=== PATIENT | female | born 1985 | race Caucasian/White ===

== ENCOUNTER 2019-08-18 17:22 | Emergency (ER) | payer OTHER ==
--- OUTSIDE RECORDS SUMMARY | 2019-08-18 17:24 | XMS REPORT ---
:1985 [facility] Address [address] [place] [address] Care Team Providers Name Role Phone Unavailable Unavailable Unavailable Problems This patient has no known problems. Allergies, Adverse Reactions, Alerts This patient has no known allergies or adverse reactions. Medications This patient has no known medications.
--- OUTSIDE RECORDS SUMMARY | 2019-08-18 17:24 | XMS REPORT | Summary of Care ---
:1985 Author Organization [facility] - Health Address [address] [place] [address] Care Team Providers Name Role Phone Syst, Referring/Pcp Prov Not In Insurance Hmo Unavailable Marian Castillo Primary Care Provider Encounter Details Date Type Department Care Team Description 05/29/2019 Orders Only [facility] Doctor Unassigned, [address] [facility] [place] [address] [address] [place] [address] Allergies No Known Allergiesdocumented as of this encounter (statuses as of 05/29/2019) Medications Medication Sig Dispensed Refills Start Date End Date Status norgestimate-ethinyl Take 1 tablet by 1 Package 3 09/11/2017 Active estradiol (ORTHO mouth daily. TRI-CYCLEN, 28,) 0.18/0.215/0.25 mg-35 mcg (28) tabletIndications: General counseling for prescription of oral contraceptives documented as of this encounter (statuses as of 05/29/2019) Active Problems Problem Noted Date History of abnormal cervical Pap smear 12/16/2018 Encounter for contraceptive management, unspecified type 09/12/2017 Cervical high risk human papillomavirus (HPV) DNA test positive 03/15/2017 Overview: HGSIL and HPV+ on 02/2017 Pap Smear Papanicolaou smear of cervix with high grade squamous intraepithelial 2016 lesion (HGSIL) Overview: HGSIL present on 03/11/2017 pap smear, patient needs LEEP Well woman exam with routine gynecological exam 03/11/2017 Screen for STD (sexually transmitted disease) 03/11/2017 Obesity, unspecified 03/11/2017 documented as of this encounter (statuses as of 05/29/2019) Resolved Problems Problem Noted Date Resolved Date General counseling for prescription of oral contraceptives 09/12/20172018 Pain pelvic 09/12/2017 12/16/2018 Encounter for other contraceptive management 03/11/2017 12/16/2018 Tubal ligation status 08/29/2016 03/11/2017 Low-lying placenta 06/15/2016 03/11/2017 Overview: FU was made for growth and placental location. 09/13/16 UTI in , antepartum 04/01/2016 03/11/2017 Supervision of high risk , antepartum 03/27/2016 03/11/2017 Multiparity 03/27/2016 03/11/2017 Obesity affecting 03/27/2016 03/11/2017 Tobacco smoking affecting 03/27/2016 03/11/2017 History of gestational hypertension 03/27/2016 03/11/2017 History of placenta abruption 03/27/2016 03/11/2017 Vaginal yeast infection 03/27/2016 03/11/2017 Encounter for routine gynecological examination 10/28/2014 03/27/2016 Overview: ICD10 Diagnosis Term [employer] Utility Surveillance of previously prescribed contraceptive method 10/28/20142015 Overview: ICD10 Diagnosis Term [employer] Utility Depo-Provera contraceptive status 10/28/2014 03/27/2016 Screen for STD (sexually transmitted disease) 10/28/2014 03/27/2016 High-risk 11/20/2013 10/28/2014 Overview: ICD10 Diagnosis Term [employer] Utility Generalized anxiety disorder 11/20/2013 03/27/2016 Tobacco use disorder 11/20/2013 03/27/2016 Prior complicated by PIH, antepartum 11/20/2013 10/28/2014 Overview: 1st Hx of one miscarriage 11/20/2013 10/28/2014 Overview: At 15wks in 2006. Followed by 3 successful deliveries Pediculus capitis (head louse) 05/09/2008 11/20/2013 Supervision of other normal 05/09/2008 11/20/2013 Urinary tract infection, site not specified 05/09/2008 11/20/2013 Cannabis dependence 05/09/2008 11/20/2013 Overview: ICD10 Diagnosis Term [employer] Nausea without vomiting 05/09/2008 11/20/2013 Overview: ICD10 Diagnosis Term [employer] Utility Other screening 05/09/2008 11/20/2013 Other specified drug dependence, unspecified 05/09/2008 11/20/2013 Less than 24 completed weeks of gestation 05/09/2008 11/20/2013 31-32 completed weeks of gestation(765.26) 05/09/2008 11/20/2013 Proteinuria 05/09/2008 11/20/2013 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 11/20/2013 Overview: ICD10 Diagnosis Term [employer] Utility Tobacco use disorder complicating , childbirth, or 04/30/20082013 puerperium, antepartum Overview: ICD10 Diagnosis Term [employer] Utility Other anxiety states 04/30/2008 11/20/2013 Carrier or suspected carrier of group B Streptococcus 04/30/2008 11/20/2013 Elevated blood pressure reading without diagnosis of 04/30/2008 11/20/2013 hypertension Overview: Labile blood pressure without s/s of PIH documented as of this encounter (statuses as of 05/29/2019) Immunizations Name Administration Dates Next Due Rubella 05/26/2010 Td 11/20/2000 Tdap 08/15/2016, 04/13/2014 documented as of this encounter Social History Tobacco Use Types Packs/Day Years Used Date Current Every Day Smoker Cigarettes 0.25 4 Started: 12/16/2008 Smokeless Tobacco: Never Used Alcohol Use Drinks/Week oz/Week Comments No 0 Standard drinks or equivalent 0.0 Sex Assigned at Date Recorded Not on file Job Start Date Occupation Industry Not on file Not on file Not on file Travel History Travel Start Travel End No recent travel history available. documented as of this encounter Last Filed Vital Signs Not on filedocumented in this encounter Plan of Treatment Health Maintenance Due Date Last Done Comments PNEUMOCOCCAL 0-64 YEARS COMBINED 1992 SERIES (1 of 1 - PPSV23) INFLUENZA VACCINE (#1) 2019 PAP SMEAR 12/16/2021 12/16/2018, 11/19/2017, 03/11/2017, Additional history exists DTaP,Tdap,and Td Vaccines (4 - Td) 08/15/2026 08/15/2016, 04/13/2014, 11/20/2000 documented as of this encounter Goals Goal Patient Goal Associated Recent Patient-Stated? Author Type Problems Progress Quit using Tobacco Use No jesse Dent RN (cigarettes, smokeless, etc) documented as of this encounter Procedures Procedure Name Priority Date/Time Associated Diagnosis Comments NO SHOW OR MISSED Routine 05/29/2019 9:38 AM APPOINTMENT POLICY CDT ACKNOWLEDGEMENT documented in this encounter Results Not on filedocumented in this encounter Insurance Payer Benefit Plan Subscriber ID Effective Phone Address Type / Group Dates [facility] xxxxxxxxx 2016-Prese [phone] Medicaid WOMEN nt [address] [place] [address] documented as of this encounter Advance Directives Name Relationship Healthcare Agent Communication Relationship Kannan Seals Father Primary healthcare agent
--- OUTSIDE RECORDS SUMMARY | 2019-08-18 17:24 | XMS REPORT | Summary of Care ---
:1985 Author Organization [facility] Address [address] [place] [address] Care Team Providers Name Role Phone Syst, Referring/Pcp Prov Not In Insurance Hmo Unavailable Jacquelyn Saunders [facility] Primary Care Provider Reason for Visit Reason Comments Initial Visit Encounter Details Date Type Department Care Team Description 05/29/2019 [facility], Supervision of high risk , antepartum (Primary Dx); Visit Gilberto Kincaid [facility] Multiparity; [address] History of placenta abruption; [facility] History of induced hypertension; [id number] JEFFREY A Obesity in ; [phone] [place], [place] Maternal tobacco use in first trimester [address] Allergies No Known Allergiesdocumented as of this [...] of 05/29/2019) Active Problems Problem Noted Date Supervision of high-risk 05/29/2019 Tobacco use in 05/29/2019 History of induced hypertension 05/29/2019 Overview: In 2007 History of placenta abruption 05/29/2019 Overview: In 2009 per patient Multiparity 05/29/2019 History of abnormal cervical Pap smear 12/16/2018 Cervical high risk human papillomavirus (HPV) DNA test positive 03/15/2017 Overview: HGSIL and HPV+ on 02/2017 Pap Smear Papanicolaou smear of cervix with high grade squamous intraepithelial 2016 lesion (HGSIL) Overview: HGSIL present on 03/11/2017 pap smear, patient needs LEEP Obesity in 03/11/2017 Estimated Date of Delivery Comments Yes 01/16/2020 Based on last menstrual period of 04/11/2019 (Exact Date) documented as of this encounter (statuses as of 05/29/2019) Resolved Problems Problem Noted Date Resolved Date Encounter for contraceptive management, unspecified type 09/12/20172018 General counseling for prescription of oral contraceptives 09/12/20172018 Pain pelvic 09/12/2017 12/16/2018 Well woman exam with routine gynecological exam 03/11/2017 05/29/2019 Screen for STD (sexually transmitted disease) 03/11/2017 05/29/2019 Encounter for other contraceptive management 03/11/2017 12/16/2018 [...] examination 10/28/2014 03/27/2016 Overview: ICD10 Diagnosis 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 Other screening 05/09/2008 11/20/2013 Other specified drug dependence, unspecified 05/09/2008 11/20/2013 Less than 24 completed weeks of gestation 05/09/2008 11/20/2013 31-32 completed weeks of gestation(765.26) 05/09/2008 11/20/2013 Proteinuria 05/09/2008 11/20/2013 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 11/20/2013 Overview: ICD10 Diagnosis Term 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 Utility Tobacco use disorder complicating , childbirth, or 04/30/20082013 puerperium, antepartum Overview: ICD10 Diagnosis Term 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 documented as of this encounter Last Filed Vital Signs Vital Sign Reading Time Taken Comments Blood Pressure 103/72 05/29/2019 10:39 AM CDT Pulse 71 05/29/2019 10:39 AM CDT Temperature 36.7 C (98 F) 05/29/2019 10:39 AM CDT Respiratory Rate 16 05/29/2019 10:39 AM CDT Oxygen Saturation - - Inhaled Oxygen Concentration - - Weight 82.3 kg (181 lb 7 oz) 05/29/2019 10:39 AM CDT Height 165.1 cm (5' 5") 05/29/2019 10:39 AM CDT Body Mass Index 30.19 05/29/2019 10:39 AM CDT documented in this encounter Progress Notes Jacquelyn Saunders, WHCNP - 05/29/2019 9:30 AM CDT Chief complaint: Chief Complaint Patient presents with Initial Visit HPI CC: Initial Visit December Arnel is a 34 year old, , /White female. Patient's last menstrual period was04/11/2019 (exact date). She is 6w6d with an suspected iup. Her Estimated Date of Delivery: 01/16/20. She is being seen today for her first obstetrical visit. She has no complaints today. OB History Para Term AB Living 7 5 5 1 5 SAB TAB Ectopic Multiple Live Births 1 5 # Outcome Date GA Lbr Gilberto/2nd Weight Sex Delivery Anes PTL Lv 7 Current 6 Term 11/08/16 40w4d 7 lb (3.175 kg) F VAGINAL SHAGGY 5 Term 06/26/14 40w0d 6 lb 6 oz (2.892 kg) M NORMAL SPONT None SHAGGY 4 Term 01/09/11 39w0d F Vag-Spont EPIDURAL SHAGGY Comments: induction 3 Term 02/16/10 39w0d F Vag-Spont EPIDURAL SHAGGY Comments: Possible placenta abruption 2 Term 05/01/08 37w0d M Vag-Spont EPIDURAL SHAGGY Comments: PIH 1 2006 15w0d Histories OB History Para Term AB Living 7 5 5 1 5 SAB TAB Ectopic Multiple Live Births 1 5 # Outcome Date GA Lbr Gilberto/2nd Weight Sex Delivery Anes PTL Lv 7 Current 6 Term 11/08/16 40w4d 7 lb (3.175 kg) F VAGINAL SHAGGY 5 Term 06/26/14 40w0d 6 lb 6 oz (2.892 kg) M NORMAL SPONT None SHAGGY 4 Term 01/09/11 39w0d F Vag-Spont EPIDURAL SHAGGY Comments: induction 3 Term 02/16/10 39w0d F Vag-Spont EPIDURAL SHAGGY Comments: Possible placenta abruption 2 Term 05/01/08 37w0d M Vag-Spont EPIDURAL SHAGGY Comments: PIH 1 2006 15w0d Past Medical History: Diagnosis Date Anxiety Resolved per pt Cannabis dependence, unspecified 05/09/2008 Resolved per pt report Generalized anxiety disorder 11/20/2013 Resolved HGSIL (high grade squamous intraepithelial lesion) on Pap smear of cervix +hpv Hypertension 2007 with first Nausea alone 05/09/2008 Other screening 05/09/2008 Other specified drug dependence, unspecified 05/09/2008 Resolved per pt report Pediculus capitis (head louse) 05/09/2008 STD (sexually transmitted disease) 2007 +chlamydia Supervision of other normal 05/09/2008 Tobacco use disorder 11/20/2013 Urinary tract infection, site not specified 05/09/2008 Vaginal yeast infection 03/27/2016 Family History Problem Relation Age of Onset Cancer Paternal Aunt and consuelo's son with cancer Cancer Father leukemia Heart Father Hypertension Father Hypertension Sister No Significant Medical Problems Maternal Grandmother No Significant Medical Problems Maternal Grandfather No Significant Medical Problems Paternal Grandmother No Significant Medical Problems Paternal Grandfather Family Status Relation Name Status PAunt Fa Alive Fa (Not Specified) Sis (Not Specified) Mo Alive MGMo MGFa PGMo PGFa History reviewed. No pertinent surgical history. Social History Socioeconomic History Marital status: Single Spouse name: Not on file Number of children: 3 Years of education: 10 Highest education level: Not on file Occupational History Not on file Social Needs Financial resource strain: Not on file Food insecurity: Worry: Not on file Inability: Not on file Transportation needs: Medical: Not on file Non-medical: Not on file Tobacco Use Smoking status: Current Every Day Smoker Packs/day: 0.25 Years: 4.00 Pack years: 1.00 Types: Cigarettes Start date: 12/16/2008 Smokeless tobacco: Never Used Substance and Sexual Activity Alcohol use: No Alcohol/week: 0.0 oz Drug use: No Sexual activity: Yes Partners: Male control/protection: None Comment: Last intercourse 05/28/2019 Lifestyle Physical activity: Days per week: Not on file Minutes per session: Not on file Stress: Not on file Relationships Social connections: Talks on phone: Not on file Gets together: Not on file Attends taoist service: Not on file Active member of club or organization: Not on file Attends meetings of clubs or organizations: Not on file Relationship status: Not on file Intimate partner violence: Fear of current or ex partner: Not on file Emotionally abused: Not on file Physically abused: Not on file Forced sexual activity: Not on file Other Topics Concern Service Not Asked Blood Transfusions No Caffeine Concern Not Asked Occupational Exposure Not Asked Hobby Hazards Not Asked Sleep Concern Not Asked Stress Concern Not Asked Weight Concern Not Asked Special Diet Not Asked Back Care Not Asked Exercise Not Asked Bike Helmet Not Asked Seat Belt Not Asked Self-Exams Not Asked Social History Narrative No domestic violence or abuse. Pt states she has no taoist preference Pt has no cats. Patient lives alone with kids, patient feels safe at home. Social History Substance and Sexual Activity Sexual Activity Yes Partners: Male control/protection: None Comment: Last intercourse 05/28/2019 Genetic Screen Autism / Mental Retardation: No Sukumar Disease: No Congenital Heart Defect: No Cystic Fibrosis: No Down Syndrome: No Familial Dysautonomia: No Hemophilia or other Blood Disorders: No Loíza Chorea: No Maternal Metabolic Disorder--specify (eg. Type 1 Diabetes, PKU): No Muscular Dystrophy: No Neural Tube Defect: No Recurrent Loss or a Stillbirth: No Sickle Cell Disease or Trait: No Manoj Sachs: No Teratological Substances (specify type & strength/dose) since LMP: No Thalassemia: No Other Inherited Genetic or Chromosomal Disorder (specify): No No Significant History of Genetic Disorders: No Significant History of Genetic Disorders Labs Labs are pending. Radiology No new radiology. Allergies Naat has No Known Allergies. Medications Nata has a current medication list which includes the following prescription(s) : norgestimate-ethinyl estradiol. Review of Systems Constitutional: Negative. HENT: Negative. Eyes: Negative. Respiratory: Negative. Breasts: Negative. Cardiovascular: Negative. Gastrointestinal: Negative. Genitourinary: Negative. Musculoskeletal: Negative. Skin: Negative. Neurological: Negative. Psychiatric/Behavioral: Negative. Endocrine: Endocrine negative BP 103/72 (BP Location: Right arm, Patient Position: Sitting, BP CUFF SIZE: Adult Medium) | Pulse 71 | Temp 36.7 C (98 F) (Oral) | Resp 16 | Ht 5' 5 " (1.651 m) | Wt 181 lb 7 oz (82.3 kg) | LMP 04/11/2019 (Exact Date) | BMI 30.19 kg/m Pregravid BMI: Could not be calculated Physical Exam Vitals reviewed. Constitutional: She is oriented to person, place, and time. She appears well- developed. Her body habitus is normal. Neck: No tenderness and no mass. No thyroid nodules and no thyromegaly palpated. No neck adenopathy. Cardiovascular: Regular rate and rhythm. No gallop, no friction rub and no murmur auscultated. No peripheral edema present. Pulmonary/Chest: Breath sounds clear to auscultation. Normal inspiratory effort. Abdominal: Abdomen is soft. No mass palpated. No tenderness present. There is no hepatosplenomegaly,splenomegaly or hepatomegaly. There is no rigidity. No hernia palpated or inspected. Neuro/Psychiatric: She has a normal mood and affect. She is oriented to person, place, and time. Skin: No lesion, no rash and no ulceration present. Lymphadenopathy: No neck adenopathy present. No axillary adenopathy present. No inguinal adenopathy present. Breast: Right breast exhibits no mass, no nipple discharge and no tenderness. Left breast exhibits no mass, no nipple discharge and no tenderness. Breasts are symmetrical. Normal left breast and normalright breast Rectal: Rectal exam with normal anal tone. No mass, no external hemorrhoid and no internal hemorrhoid palpated or inspected. External genitalia: Normal external genitalia appropriate for age. Normal hair distribution. No labial lesion. Urethral meatus: Normal urethral meatus size, location and no lesion. No prolapse present. Normal urethral meatus Urethra: Normal urethra. No urethral tenderness, no mass and no urethral scarring palpated. Bladder: Bladder has no fullness, no mass palpated and no tenderness. Normal bladder Vagina:Normal vagina. No lesion inspected. Normal estrogen effect. Normal support. No abnormal vaginal discharge found. Cervix: Normal cervix. No lesion. No tenderness and no discharge present. Closed thick Uterus: Uterus is normal size, normal contour, normal position and non-tender. Normal uterus Adnexa: Right adnexa without tenderness, ovary enlargement or mass. Left adnexa without tenderness, ovary enlargement or mass. Normal left adnexa and normal right adnexa Anus/perineum: Normal perineum and normal anus. PHYSICAL: General Exam: HEENT: Normal Neurological: Normal Abdomen: Normal gravid Extremities: Normal Pelvic Exam: Vulva: Normal Vagina: Normal Cervix: Normal Membrane status: Intact Uterus: 6 Weeks Adnexa: Normal Rectum: Normal Assessment/Plan Return to clinic in 4 weeks. Denies zika virus risk, signs and symptoms such as fever,rash,joint pain, conjunctivitis (red eyes),muscle pain, headaches; outside [place] travel to areas affected by zika, and FOB exposure to zika. Educated on use of mosquito repellent. Supervision of high risk , antepartum (primary encounter diagnosis) Multiparity History of placenta abruption History of induced hypertension Comment: initial visit with labs and physical exam Plan: POCT TEST, POCT URINALYSIS W/O SPECIFIC GRAVITY, GLUCOSE 1 HOUR POST PRANDIAL, CBC WITH DIFF, GC & CHLAMYDIA AMPLIFIED ASSAY, HEPATITIS B SURFACE ANTIGEN, HIV 1/2 AG-AB WITH REFLEX, POCT URINALYSIS W SPECIFIC GRAVITY, WORKUP, BLOOD BANK, RUBELLA SCREEN (NONI) IGG, GALV ONLY - SYPHILIS IGG/IGM, URINE CULTURE, VZV ANTIBODY SCREEN, CBC WITH DIFFERENTIAL Obesity in Comment: see bmi Plan: limit weight gain and sensible diet. Maternal tobacco use in first trimester Comment: reports Plan: smoking cessation encouraged This visit did not involve counseling and coordination that comprised more than 50% of the visit time. PADMINI Angeles 05/29/2019 4:00 PM Lj Cohen RN - 05/29/2019 9:30 AM CDTPatient is 34 year old female here for current . Patient is . 1) Previous delivery methods Vaginal 2) Patient is not experiencing cramping 3) Patient is not experiencing bleeding. 4) LMP 04/11/2019 5) Last Pap was:12/16/2018 Results: Negative HPV: Negative 6) Have you had a flu vaccine this season? No, 7) PPD candidate? No 8) Patient complains uti symptoms and yeast infections symptoms. 9) Patient denies history of physical, emotional, or sexual abuse. Patient states she currently feels safe at home. New ob packet given and discussed with patient. LJ ODOM RN 05/29/2019 10:58 AM documented in this encounter Plan of Treatment Date Type Specialty Care Team Description 06/26/2019 Routine Visit OB Satellites Jacquelyn Saunders, [facility] [address] [place] [address] [phone] Name Type Priority Associated Diagnoses Date/Time GLUCOSE 1 HOUR POST LAB Routine Supervision of high risk 05/29/2019 11:47 AM PRANDIAL , antepartum CDT CBC WITH DIFF LAB Routine Supervision of high risk 05/29/2019 11:47 AM , antepartum CDT GC & CHLAMYDIA AMPLIFIED LAB Routine Supervision of high risk 05/29/2019 11 :59 AM ASSAY , antepartum CDT HEPATITIS B SURFACE LAB Routine Supervision of high risk 05/29/2019 11:47 AM ANTIGEN , antepartum CDT HIV 1/2 AG-AB WITH REFLEX LAB Routine Supervision of high risk 05/29/2019 11:47 AM , antepartum CDT RUBELLA SCREEN (NONI) LAB Routine Supervision of high risk 05/29/2019 11: 47 AM IGG , antepartum CDT GALV ONLY - SYPHILIS LAB Routine Supervision of high risk 05/29/2019 11:47 AM IGG/IGM , antepartum CDT URINE CULTURE LAB Routine Supervision of high risk 05/29/2019 11:59 AM , antepartum CDT VZV ANTIBODY SCREEN LAB Routine Supervision of high risk 05/29/2019 11:47 AM , antepartum CDT CBC WITH DIFFERENTIAL LAB Routine Supervision of high risk 05/29/2019 11: 47 AM , antepartum CDT Name Type Priority Associated Diagnoses Order Schedule POCT URINALYSIS W LAB Routine Supervision of high risk 20 Occurrences starting SPECIFIC GRAVITY , antepartum 05/29/2019 until 03/24/2020 WORKUP, BLOOD LAB Routine Supervision of high risk Ordered: 2018 BANK , antepartum Health Maintenance Due Date Last Done Comments PNEUMOCOCCAL 0-64 YEARS COMBINED 1992 SERIES (1 of 1 - PPSV23) INFLUENZA VACCINE (#1) 2019 PAP SMEAR 12/16/2021 12/16/2018, 11/19/2017, 03/11/2017, Additional history exists DTaP,Tdap,and Td Vaccines (4 - Td) 08/15/2026 08/15/2016, 04/13/2014, 11/20/2000 documented as of this encounter Goals Goal Patient Goal Associated Recent Patient-Stated? Author Type Problems Progress Quit using Tobacco Use jesse Brower RN (cigarettes, smokeless, etc) documented as of this encounter Procedures Procedure Name Priority Date/Time Associated Diagnosis Comments POCT URINALYSIS W/O Routine 05/29/2019 10:42 Supervision of high Results for this SPECIFIC GRAVITY AM CDT risk , procedure are in antepartum the results section. POCT TEST Routine 05/29/2019 10:40 Supervision of high Results for this AM CDT risk , procedure are in antepartum the results section. documented in this encounter Results POCT URINALYSIS W/O SPECIFIC GRAVITY (05/29/2019 10:42 AM CDT) POCT PH U 6 5 - 8 mg/dl POCT U LEUK EST Neg Negative - Negative POCT U NIT Neg Negative - Negative POCT U PROT Trace Negative - Negative POCT U GLU Neg Negative - Negative POCT U KETONE None Negative - Negative POCT U BLD Trace Negative - Negative Specimen Urine - URINE, CLEAN CATCH POCT TEST (05/29/2019 10:40 AM CDT) POCT PREG Positive On board controls acceptable Yes with C Line POCT PREG LOT # POCT PREG TEST DATE Specimen Urine - URINE, CLEAN CATCH documented in this encounter Visit Diagnoses Diagnosis Supervision of high risk , antepartum - Primary Multiparity History of placenta abruption History of induced hypertension Obesity in Obesity complicating , childbirth, or the puerperium, unspecified as to episode of care or not applicable Maternal tobacco use in first trimester documented in this encounter Insurance Payer Benefit Plan / Subscriber ID Effective Phone Address Type Group Dates MEDICAID MEDICAID PENDING 2019-[address] [place] [address] documented as of this encounter Advance Directives Name Relationship Healthcare Agent Communication Relationship Kannan Seals Father Primary healthcare agent
--- OUTSIDE RECORDS SUMMARY | 2019-08-18 17:25 | XMS REPORT | Summary of Care ---
:1985 Author Organization [facility] Address [address] [place] [address] Care Team Providers Name Role Phone Syst, Referring/Pcp Prov Not In Insurance Hmo Unavailable Jacquelyn Saunders [facility] Primary Care Provider Reason for Visit Reason Comments Orders US Encounter Details Date Type Department Care Team Description 06/01/[address] [facility] Jacquelyn Saunders, Orders ([place]) [address] [place] [address] [address] [facility] [phone] [place] [address] Allergies No Known Allergiesdocumented as of this encounter (statuses as of 06/01/2019) Medications Medication Sig Dispensed Refills Start Date End Date Status norgestimate-ethinyl Take 1 tablet by 1 Package 3 09/11/2017 Active estradiol (ORTHO mouth daily. 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 Depo-Provera contraceptive status 10/28/2014 03/27/2016 Screen for STD (sexually transmitted disease) 10/28/2014 03/27/2016 High-risk 11/20/2013 10/28/2014 Overview: ICD10 Diagnosis 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 Utility Generalized anxiety disorder 11/20/2013 03/27/2016 Tobacco [...] dependence 05/09/2008 11/20/2013 Overview: ICD10 Diagnosis 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 Nausea without vomiting 05/09/2008 11/20/2013 Overview: ICD10 Diagnosis 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 Utility Other screening 05/09/2008 11/20/2013 Other specified drug dependence, unspecified 05/09/2008 11/20/2013 Less than 24 completed weeks of gestation 05/09/2008 11/20/2013 31-32 completed weeks of gestation(765.26) 05/09/2008 11/20/2013 Proteinuria 05/09/2008 11/20/2013 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 11/20/2013 Overview: ICD10 Diagnosis 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 Utility Tobacco use disorder complicating , childbirth, or 04/30/20082013 puerperium, antepartum Overview: ICD10 Diagnosis 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 Utility Other anxiety states 04/30/2008 11/20/2013 Carrier or suspected carrier of group B Streptococcus 04/30/2008 11/20/2013 Elevated blood pressure reading without diagnosis of 04/30/2008 11/20/2013 hypertension Overview: Labile blood pressure without s/s of PIH documented as of this encounter (statuses as of 06/01/2019) Immunizations Name Administration Dates Next Due Rubella [...] filedocumented in this encounter Plan of Treatment Date Type Specialty Care Team Description 06/26/2019 Routine Visit OB Satellites Jacquelyn Saunders, WHCNP [address] [place] [address] [phone] Health Maintenance Due Date Last Done Comments PNEUMOCOCCAL 0-64 YEARS COMBINED 1992 SERIES (1 of 1 - PPSV23) INFLUENZA VACCINE (#1) 2019 PAP SMEAR 12/16/2021 12/16/2018, 11/19/2017, 03/11/2017, Additional history exists DTaP,Tdap,and Td Vaccines (4 - Td) 08/15/2026 08/15/2016, 04/13/2014, 11/20/2000 documented as of this encounter Goals Goal Patient Goal Associated Recent Patient-Stated? Author Type Problems Progress Quit using Tobacco Use No jesse Dent, RN (cigarettes, smokeless, etc) documented as of this encounter Results Not on filedocumented in this encounter Insurance Payer Benefit Plan Subscriber ID Effective Phone Address Type / Group Dates MEDICAID MEDICAID PENDING 2019-Pres [address] [place] [address] [facility] xxxxxxxxx 2016-Pres [phone] [address] Medicaid WOMEN ent [address] [place] [address] documented as of this encounter Advance Directives Name Relationship Healthcare Agent Communication Relationship Kannan Seals Father Primary healthcare agent
--- OUTSIDE RECORDS SUMMARY | 2019-08-18 17:25 | XMS REPORT | Summary of Care ---
:[address] 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 Tender Utility Surveillance of previously prescribed contraceptive method 10/28/20142015 Overview: ICD10 Diagnosis Term Boom Tender Utility Depo-Provera contraceptive status 10/28/2014 03/27/2016 Screen for STD (sexually transmitted disease) 10/28/2014 03/27/2016 High-risk 11/20/2013 10/28/2014 Overview: ICD10 Diagnosis Term Boom Tender Utility Generalized anxiety disorder 11/20/2013 03/27/2016 Tobacco [...] dependence 05/09/2008 11/20/2013 Overview: ICD10 Diagnosis Term Boom Tender Utility Nausea without vomiting 05/09/2008 11/20/2013 Overview: ICD10 Diagnosis Term Boom Tender Utility Other screening 05/09/2008 11/20/2013 Other specified drug dependence, unspecified 05/09/2008 11/20/2013 Less than 24 completed weeks of gestation 05/09/2008 11/20/2013 31-32 completed weeks of gestation(765.26) 05/09/2008 11/20/2013 Proteinuria 05/09/2008 11/20/2013 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 11/20/2013 Overview: ICD10 Diagnosis Term Boom Tender Utility Tobacco use disorder complicating , childbirth, or 04/30/20082013 puerperium, antepartum Overview: ICD10 Diagnosis Term Boom Tender Utility Other anxiety states 04/30/2008 11/20/2013 Carrier [...] 06/26/2019 Routine Visit OB Satellites Jacquelyn Saunders, CNP [address] [place] [address] [phone] Health Maintenance Due Date Last Done Comments [...] Group Dates MEDICAID MEDICAID PENDING 2019-Pres [address] Pending [place] [address] [facility] xxxxxxxxx 2016-Pres [phone] [id number] Medicaid WOMEN ent [address] [place] [address] documented as of this encounter Advance Directives Name Relationship Healthcare Agent Communication Relationship Kannan Seals Father Primary healthcare agent
--- OUTSIDE RECORDS SUMMARY | 2019-08-18 17:25 | XMS REPORT | Summary of Care ---
:1985 Author Organization [facility] Address [address] [place] [address] Care Team Providers Name Role Phone Syst, Referring/Pcp Prov Not In Insurance Hmo Unavailable Jacquelyn Saunders [facility] Primary Care Provider Reason for Visit Reason Comments Orders US Encounter Details Date Type Department Care Team Description 06/01/2019 Telephone [facility] [place] Jacquelyn Saunders, Orders ([place]) [address] [place] [address] 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 Utility Surveillance of previously prescribed contraceptive method 10/28/20142015 Overview: ICD10 Diagnosis Term Enologist Utility Depo-Provera contraceptive status 10/28/2014 03/27/2016 Screen for STD (sexually transmitted disease) 10/28/2014 03/27/2016 High-risk 11/20/2013 10/28/2014 Overview: ICD10 Diagnosis Term Enologist Utility Generalized anxiety disorder 11/20/2013 03/27/2016 Tobacco [...] dependence 05/09/2008 11/20/2013 Overview: ICD10 Diagnosis Term Enologist Utility Nausea without vomiting 05/09/2008 11/20/2013 Overview: ICD10 Diagnosis Term Enologist Utility Other screening 05/09/2008 11/20/2013 Other specified drug dependence, unspecified 05/09/2008 11/20/2013 Less than 24 completed weeks of gestation 05/09/2008 11/20/2013 31-32 completed weeks of gestation(765.26) 05/09/2008 11/20/2013 Proteinuria 05/09/2008 11/20/2013 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 11/20/2013 Overview: ICD10 Diagnosis Term Enologist Utility Tobacco use disorder complicating , childbirth, or 04/30/20082013 puerperium, antepartum Overview: ICD10 Diagnosis Term Enologist Utility Other anxiety states 04/30/2008 11/20/2013 Carrier [...] OB Satellites Jacquelyn Saunders, WHCNP [address] [place] [address] [phone] Health Maintenance Due Date Last Done Comments [...] Group Dates MEDICAID MEDICAID PENDING 2019-Pres [address] Pending [place] [address] [facility] xxxxxxxxx 2016-Pres [phone] [id number] Medicaid WOMEN ent [address] [place] [address] documented as of this encounter Advance Directives Name Relationship Healthcare Agent Communication Relationship Kannan Seals Father Primary healthcare agent
--- OUTSIDE RECORDS SUMMARY | 2019-08-18 17:26 | XMS REPORT | Summary of Care ---
:1985 Author Organization [facility] Address [address] [place] [address] Care Team Providers Name Role Phone Syst, Referring/Pcp Prov Not In Insurance Hmo Unavailable Jacquelyn Saunders [facility] Primary Care Provider Reason for Referral (Routine) Status Reason Specialty Diagnoses / Referred By Referred To Procedures Contact Contact New Request Maternal Diagnoses Supervision of high risk , antepartum Nicky, Medicine Procedures CONSULT MATERNAL MEDICINE ULTRASOUND Preferred Location: Gilberto Kincaid [facility] [address] [place] [address] Reason for Visit Reason Comments Orders US Encounter Details Date Type Department Care Team Description 06/01/2019 Telephone [facility]- Jacquelyn Keller, Orders ([place]) [address] [place] [address] [address] [facility] [phone] [place] [address] Allergies No Known Allergiesdocumented as [...] examination 10/28/2014 03/27/2016 Overview: ICD10 Diagnosis Term 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 Surveillance of previously prescribed contraceptive method 10/28/20142015 Overview: ICD10 Diagnosis Term 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 Depo-Provera contraceptive status 10/28/2014 03/27/2016 Screen for STD (sexually transmitted disease) 10/28/2014 03/27/2016 High-risk 11/20/2013 10/28/2014 Overview: ICD10 Diagnosis Term 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 Generalized anxiety disorder 11/20/2013 03/27/2016 Tobacco [...] dependence 05/09/2008 11/20/2013 Overview: ICD10 Diagnosis Term 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 Nausea without vomiting 05/09/2008 11/20/2013 Overview: ICD10 Diagnosis Term 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 Other screening 05/09/2008 11/20/2013 Other specified drug dependence, unspecified 05/09/2008 11/20/2013 Less than 24 completed weeks of gestation 05/09/2008 11/20/2013 31-32 completed weeks of gestation(765.26) 05/09/2008 11/20/2013 Proteinuria 05/09/2008 11/20/2013 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 11/20/2013 Overview: ICD10 Diagnosis Term 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 Tobacco use disorder complicating , childbirth, or 04/30/20082013 puerperium, antepartum Overview: ICD10 Diagnosis Term 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 Other anxiety states 04/30/2008 11/20/2013 Carrier [...] OB Satellites Jacquelyn Saunders, CNP [address] [place] [address] [phone] Health Maintenance Due Date Last Done Comments [...] Results Not on filedocumented in this encounter Visit Diagnoses Diagnosis Supervision of high risk , antepartum - Primary documented in this encounter Insurance Payer Benefit Plan Subscriber ID Effective Phone Address Type / Group Dates MEDICAID MEDICAID PENDING 2019-Pres [address] [place] [address] Pending [place] [address] [facility] xxxxxxxxx 2016-Pres [phone] [address] Medicaid WOMEN ent [address] [place] [address] documented as of this encounter Advance Directives Name Relationship Healthcare Agent Communication Relationship Kannan Seals Father Primary healthcare agent
--- OUTSIDE RECORDS SUMMARY | 2019-08-18 17:26 | XMS REPORT | Summary of Care ---
:1985 Author Organization [facility] Address [address] [place] [address] Care Team Providers Name Role Phone Syst, Referring/Pcp Prov Not In Insurance Hmo Unavailable Jacquelyn Saunders [facility] Primary Care Provider Reason for Referral (Routine) Status Reason Specialty Diagnoses / Referred By Referred To Procedures Contact Contact New Request Maternal Diagnoses Supervision of high risk , antepartum Nicky, Medicine Procedures CONSULT MATERNAL MEDICINE ULTRASOUND Preferred Location: Gilberto Kincaid [facility] [address] [place] [address] Reason for Visit Reason Comments Orders US Encounter Details Date Type Department Care Team Description 06/01/2019 Telephone [facility]- Jacquelyn Keller, Orders ([place]) [address] [place] [address] [address] [facility] [phone] [place] [address] Allergies No Known Allergiesdocumented as [...] examination 10/28/2014 03/27/2016 Overview: ICD10 Diagnosis Term 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 Surveillance of previously prescribed contraceptive method 10/28/20142015 Overview: ICD10 Diagnosis Term 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 Depo-Provera contraceptive status 10/28/2014 03/27/2016 Screen for STD (sexually transmitted disease) 10/28/2014 03/27/2016 High-risk 11/20/2013 10/28/2014 Overview: ICD10 Diagnosis Term 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 Generalized anxiety disorder 11/20/2013 03/27/2016 Tobacco [...] dependence 05/09/2008 11/20/2013 Overview: ICD10 Diagnosis Term 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 Nausea without vomiting 05/09/2008 11/20/2013 Overview: ICD10 Diagnosis Term 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 Other screening 05/09/2008 11/20/2013 Other specified drug dependence, unspecified 05/09/2008 11/20/2013 Less than 24 completed weeks of gestation 05/09/2008 11/20/2013 31-32 completed weeks of gestation(765.26) 05/09/2008 11/20/2013 Proteinuria 05/09/2008 11/20/2013 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 11/20/2013 Overview: ICD10 Diagnosis Term 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 Tobacco use disorder complicating , childbirth, or 04/30/20082013 puerperium, antepartum Overview: ICD10 Diagnosis Term 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 Other anxiety states 04/30/2008 11/20/2013 Carrier [...] OB Satellites Jacquelyn Saunders, CNP [address] [place] [address] [phone] Health Maintenance Due Date Last Done Comments [...] / Group Dates MEDICAID MEDICAID PENDING 2019-Pres [address] [place] [address] [place] [address] [facility] xxxxxxxxx 2016-Pres [phone] [id number] Medicaid WOMEN ent [address] [place] [address] documented as of this encounter Advance Directives Name Relationship Healthcare Agent Communication Relationship Kannan Seals Father Primary healthcare agent
--- NOTE | 2019-08-18 19:19 | EDPHYS ---
Physician Documentation [facility] [place] Name: December Arnel Age: 34 yrs Sex: Female : 1985 Arrival Date: 08/18/2019 Time: 17:25 Bed 23 Private MD: None, None ED Physician Jim Thomas HPI: 08/18 17:58 This 34 yrs old Female presents to ER via Ambulatory with complaints of 17 romeo wks ,vaginal leaking. 17:58 The patient presents to the emergency department with rupture of membranes, unk. The [facility] estimated gestational age is 17 weeks. course: care: private OB physician. Previous pregnancies: in previous pregnancies patient has had vaginal delivery. Associated signs and symptoms: The patient has no apparent associated signs or symptoms. The patient has not experienced similar symptoms in the past. 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 - Social history:: Smoking status: Patient uses tobacco products, 1/4 PPD. - Ebola Screening: : Patient denies travel to an Ebola-affected area in the 21 days before illness onset. - Family history:: not pertinent. ROS: 17:58 Constitutional: Negative for fever, chills, and weight loss, Eyes: Negative for injury, romeo pain, redness, and discharge, ENT: Negative for injury, pain, and discharge, Neck: Negative for injury, pain, and swelling, Cardiovascular: Negative for chest pain, palpitations, and edema, Respiratory: Negative for shortness of breath, cough, wheezing, and pleuritic chest pain, Abdomen/GI: Negative for abdominal pain, nausea, vomiting, diarrhea, and constipation, Back: Negative for injury and pain, MS/Extremity: Negative for injury and deformity, Skin: Negative for injury, rash, and discoloration, Neuro: Negative for headache, weakness, numbness, tingling, and seizure, Psych: Negative for depression, anxiety, suicide ideation, homicidal ideation, and hallucinations, Allergy/Immunology: Negative for hives, rash, and allergies, Endocrine: Negative for neck swelling, polydipsia, polyuria, polyphagia, and marked weight changes, Hematologic/Lymphatic: Negative for swollen nodes, abnormal bleeding, and unusual bruising. 17:58 : Positive for vaginal discharge. Exam: 17:58 Constitutional: This is a well developed, well nourished patient who is awake, alert, romeo and in no acute distress. Head/Face: Normocephalic, atraumatic. Eyes: Pupils equal round and reactive to light, extra-ocular motions intact. Lids and lashes normal. Conjunctiva and sclera are non-icteric and not injected. Cornea within normal limits. Periorbital areas with no swelling, redness, or edema. ENT: Nares patent. No nasal discharge, no septal abnormalities noted. Tympanic membranes are normal and external auditory canals are clear. Oropharynx with no redness, swelling, or masses, exudates, or evidence of obstruction, uvula midline. Mucous membranes moist. Neck: Trachea midline, no thyromegaly or masses palpated, and no cervical lymphadenopathy. Supple, full range of motion without nuchal rigidity, or vertebral point tenderness. No Meningismus. Chest/axilla: Normal chest wall appearance and motion. Nontender with no deformity. No lesions are appreciated. Cardiovascular: Regular rate and rhythm with a normal S1 and S2. No gallops, murmurs, or rubs. Normal PMI, no JVD. No pulse deficits. Respiratory: Lungs have equal breath sounds bilaterally, clear to auscultation and percussion. No rales, rhonchi or wheezes noted. No increased work of breathing, no retractions or nasal flaring. Abdomen/GI: Soft, non-tender, with normal bowel sounds. No distension or tympany. No guarding or rebound. No evidence of tenderness throughout. Back: No spinal tenderness. No costovertebral tenderness. Full range of motion. Skin: Warm, dry with normal turgor. Normal color with no rashes, no lesions, and no evidence of cellulitis. MS/ Extremity: Pulses equal, no cyanosis. Neurovascular intact. Full, normal range of motion. Neuro: Awake and alert, GCS 15, oriented to person, place, time, and situation. Cranial nerves II-XII grossly intact. Motor strength 5/5 in all extremities. Sensory grossly intact. Cerebellar exam normal. Normal gait. Psych: Awake, alert, with orientation to person, place and time. Behavior, mood, and affect are within normal limits. 19:20 : CVA tenderness, is absent, Pelvic Exam: External exam: is normal, Speculum exam: [facility] normal findings, no bleeding is noted, no cervicitis, os that is closed, no tissue in cervix is seen, no tissue in vagina is seen, no pooling, nitrazine neg, os closed. Vital Signs: 17:45 BP 117 / 82; Pulse 83; Resp 18; Temp 98.2; Pulse Ox 99% on R/A; Weight 81.65 kg (R); aj1 Height 5 ft. 5 in. (165.10 cm) (R); Pain 0/10; 17:45 Body Mass Index 29.95 (81.65 kg, 165.10 cm) aj1 MDM: 17:44 Patient medically screened. [facility] 18:00 Data reviewed: vital signs, nurses notes, lab test result(s), radiologic studies, [facility] ultrasound. 08/18 17:57 Order name: Urine Culture [facility] 08/18 17:57 Order name: NPO; Complete Time: 18:21 [facility] 08/18 17:57 Order name: Urine Dipstick-Ancillary (obtain specimen); Complete Time: 18:40 [facility] 08/18 17:57 Order name: US OB Limited [facility] 08/18 18:33 Order name: Urine Dipstick--Ancillary (enter results) 08/18 18:33 Order name: Urine --Ancillary (enter results) 08/18 17:57 Order name: Pelvic Exam Setup; Complete Time: 18:21 [facility] Administered Medications: 18:21 Not Given (Patient Refused): NS 0.9% 1000 ml IV at 1 bolus Per protocol; 1000 mL bolus aj1 Disposition: 08/18/19 19:19 Discharged to Home. Impression: related conditions, unspecified, second trimester. - Condition is Stable. - Discharge Instructions: Pelvic Rest, Second Trimester of , [id number]. - Prescriptions for Vitamin 27- 0.8 mg Oral Tablet - take 1 tablet by ORAL route once daily; 30 tablet. - Medication Reconciliation Form, Thank You Letter, Antibiotic Education, Prescription Opioid Use form. - Follow up: Private Physician; When: 2 - 3 days; Reason: Recheck today's complaints, Continuance of care, Re-evaluation by your physician. - Problem is new. - Symptoms have improved. Signatures: Dispatcher [employer] Soco Watkins RN RN aj1 Jim Thomas MD MD cha Corrections: (The following items were deleted from the chart) 18:01 18:00 Urine Culture+BA.LAB.BRZ ordered. [facility] 18:21 17:57 IV Saline Lock [place]. [place] [address] 18:21 17:57 Labs collected and sent ordered. romeo villarreal 19:28 19:19 08/18/2019 19:19 Discharged to Home. Impression: related conditions, aj1 unspecified, second trimester. Condition is Stable. Forms are Medication Reconciliation Form, Thank You Letter, Antibiotic Education, Prescription Opioid Use. Follow up: Private Physician; When: 2 - 3 days; Reason: Recheck today's complaints, Continuance of care, Re-evaluation by your physician. Problem is new. Symptoms have improved. romeo
--- NOTE | 2019-08-18 19:19 | ER ---
Nurse's Notes [facility] Name: Nata Seals Age: 34 yrs Sex: Female : 1985 Arrival Date: 08/18/2019 Time: 17:25 Bed 23 Private MD: None, None Diagnosis: related conditions, unspecified, second trimester Presentation: 08/18 17:43 Presenting complaint: Patient states: She felt like she had some "water" leak out of aj1 her vagina today, states that she doesn't not think that it was urine because she didn't' feel the need to pee at that time. Patient also reports lower abdominal cramping. Denies vaginal bleeding. Patient reports that she is 17 weeks , see [facility] clinic for check ups. Transition of care: patient was not received from another setting of care. Onset of symptoms was August 18, 2019. Risk Assessment: Do you want to hurt yourself or someone else? Patient reports no desire to harm self or others. Initial Sepsis Screen: Does the patient meet any 2 criteria? No. Patient's initial sepsis screen is negative. Does the patient have a suspected source of infection? No. Patient's initial sepsis screen is negative. Care prior to arrival: None. 17:43 Method Of Arrival: Ambulatory aj1 17:43 Acuity: TIGIST 3 aj1 Triage Assessment: 17:45 General: Appears in no apparent distress. comfortable, Behavior is calm, cooperative, aj1 appropriate for age. Pain: Denies pain. 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 - Social history:: Smoking status: Patient uses tobacco products, 1/4 PPD. - Ebola Screening: : Patient denies travel to an Ebola-affected area in the 21 days before illness onset. - Family history:: not pertinent. Screenin:52 Abuse screen: Denies threats or abuse. Denies injuries from another. Nutritional aj1 screening: No deficits noted. Tuberculosis screening: No symptoms or risk factors identified. 19:18 Fall Risk None identified. [facility] Assessment: 17:52 General: Appears in no apparent distress. comfortable, Behavior is calm, cooperative, aj1 appropriate for age. Pain: Denies pain. Neuro: Level of Consciousness is awake, alert, obeys commands, Oriented to person, place, time, situation. Cardiovascular: Patient's skin is warm and dry. Respiratory: Airway is patent Respiratory effort is even, unlabored, Respiratory pattern is regular, symmetrical. GI: Reports cramping. : Reports discharge, watery, Denies vaginal bleeding. EENT: No signs and/or symptoms were reported regarding the EENT system. Derm: No signs and/or symptoms reported regarding the dermatologic system. Skin is pink, warm \\T\\ dry. normal. Musculoskeletal: No signs and/or symptoms reported regarding the musculoskeletal system. Circulation, motion, and sensation intact. 18:22 Reassessment: Patient refuses blood drawn and IV start, states that she has an [facility] appointment for labs tomorrow and she doesn't want them done twice. Notified Dr. Thomas. 19:17 Reassessment: Patient appears in no apparent distress at this time. No changes from [facility] previously documented assessment. Patient and/or family updated on plan of care and expected duration. Pain level reassessed. Patient is alert, oriented x 3, equal unlabored respirations, skin warm/dry/pink. Vital Signs: 17:45 BP 117 / 82; Pulse 83; Resp 18; Temp 98.2; Pulse Ox 99% on R/A; Weight 81.65 kg (R); aj1 Height 5 ft. 5 in. (165.10 cm) (R); Pain 0/10; 17:45 Body Mass Index 29.95 (81.65 kg, 165.10 cm) aj ED Course: 17:25 Patient arrived in ED. mr 17:26 None, None is Private Physician. mr 17:44 Jim Thomas MD is Attending Physician. [facility] 17:44 Triage completed. aj1 17:45 Arm band placed on. aj1 17:52 Patient has correct armband on for positive identification. Bed in low position. Call [facility] light in reach. Side rails up X 1. 17:52 No provider procedures requiring assistance completed. aj1 18:40 Soco Servin, RN is Primary Nurse. aj1 19:16 US OB Limited In Process Unspecified. EDMS 19:18 Assist provider with pelvic exam: Set up pelvic tray. Performed by Jim Thomas MD aj1 Patient tolerated well. 19:18 Patient did not have IV access during this emergency room visit. aj1 Administered Medications: 18:21 Not Given (Patient Refused): NS 0.9% 1000 ml IV at 1 bolus Per protocol; 1000 mL bolus aj1 Outcome: 19:19 Discharge ordered by . romeo 19:27 Discharged to home ambulatory. aj1 19:27 Condition: good 19:27 Discharge instructions given to patient, Instructed on discharge instructions, follow up and referral plans. medication usage, Demonstrated understanding of instructions, follow-up care, medications, Prescriptions given X 1. 19:28 Patient left the ED. aj1 Signatures: Dispatcher [employer] Soco Shaffer RN RN aj1 Jim Thomas MD MD cha Rivera, Mary mr
--- NOTE | 2019-08-18 19:54 | RAD REPORT ---
EXAM DESCRIPTION: US - OB Limited - 08/18/2019 7:16 pm CLINICAL HISTORY: , abdominal cramping COMPARISON: None. FINDINGS: Limited OB sonography was performed. Single intrauterine gestation is identified. Heart ra te is 141 BPM. Cervical canal is closed. Amniotic fluid volume is normal. Posterior placenta shows no abruption, previa or marginal hematoma. Amniotic fluid volume is normal. KAYLA is 21.91 cm. IMPRESSION: Single gestation with normal heart rate. No anatomic assessment performed. Amniotic fluid volume normal, no abnormality of the posterior placenta seen and cervical canal is luis sed.
[2019-08-18 19:55] VITALS: BP 117/82; TEMP 98.2; O2SAT 99
[2019-08-18 20:11] LABS: Urine Blood TRACE (NEG); Urine Glucose NEGATIVE (NEG); Urine Protein TRACE (NEG); Urine Specific Gravity >1.030 (1.005-1.030)
== END 2019-08-18 19:28 | disposition home or self-care (01) ==
LOC: ER 17:22
DX: O26.892 Other specified pregnancy related conditions, second trimester (principal)
CPT/HCPCS: 76815; 81003; 81025; 87086; 87088; 99283

== ENCOUNTER 2020-01-11 00:48 | Inpatient (IN) | payer OTHER ==
--- OUTSIDE RECORDS SUMMARY | 2020-01-11 04:09 | XMS REPORT ---
:1985 Author Organization [facility] t Address [address] [place] [address] Dr. Bergman [address] [place] [id number] Care Team Providers Name Role Phone Unavailable Unavailable Unavailable Problems This patient has no known problems. Allergies, Adverse Reactions, Alerts This patient has no known allergies or adverse reactions. Medications This patient has no known medications.
[2020-01-11] MEDS ORDERED: METHYLERGONOVINE 0.2MG/ML AMP IM PRN (04:12)
[2020-01-11] MEDS ORDERED: Ringers Lactate 1,000 ML IV PRN (04:12)
[2020-01-11] MEDS ORDERED: CARBOPROST TROME 250 MCG/ML IM PRN (04:12)
--- OUTSIDE RECORDS SUMMARY | 2020-01-11 04:12 | XMS REPORT | Summary of Care ---
:1985 Author Organization [facility] - Health Address [address] [place] [address] Care Team Providers Name Role Phone Syst, Referring/Pcp Prov Not In Insurance Hmo Unavaila ble Encounter Details Date Type Department Care Team Description 11/25/2019 Orders Only [facility] Doctor Unassigned, No [address] [facility] Name [place] [phone] [place] [address] Allergies No Known Allergiesdocumented as of this encounter (statuses as of 12/31/2019) Medications Medication Sig Dispensed Refills Start Date End Date Status norgestimate-ethinyl Take 1 tablet by 1 Package 3 09/11/2017 Active estradiol (ORTHO mouth daily. 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/14/2017 lesion (HGSIL) Overview: HGSIL present on 03/11/2017 pap smear, pa tient needs LEEP Obesity in 03/11/2017 Estimated Date of Delivery Comments Yes 01/16/2020 Based on last menstr ual period of 04/11/2019 (Exact Date) documented as of this encounter (statuses as of 12/31/2019) Resolved Problems Problem Noted Date Resolved Date Encounter for contraceptive management, unspecified type 05/29/2019 General counseling for prescription of oral contraceptives 1 11/13/2016 12/16/2018 Pain pelvic 09/12/2017 12/16/2018 Well woman exam with routine gynecological exam 03/11/2017 05/29/2019 Screen for STD (sexually transmitted disease) 03/11/2017 05/29/2019 Encounter for other contraceptive management 03/11/2017 12/16/2018 Tubal ligation status 08/29/2016 03/11/2017 Low-lying placenta 06/15/2016 03/11/2017 Overview: FU was made for growth and placental loc ation. 09/13/16 UTI in , antepartum 04/01/2016 03/11/2017 Supervision of high risk , antepartum 03/27/2016 03/11/2017 Multiparity 03/27/2016 03/11/2017 Obesity affecting 03/27/2016 03/11/2017 Tobacco smoking affecting 03/27/201602/21 History of gestational hypertension 03/27/201602/21 History of placenta abruption 03/27/2016 03/11/2017 Vaginal yeast infection 03/27/2016 03/11/2017 Encounter for routine gynecological examination 10/28/2014 03/27/2016 Overview: ICD10 Diagnosis Term Metallurgist Process Utility Surveillance of previously prescribed contraceptive method 0 10/28/2014 03/27/2016 Overview: ICD10 Diagnosis Term Metallurgist Process Utility Depo-Provera contraceptive status 10/28/20142015 Screen for STD (sexually transmitted disease) 10/28/2014 03/27/2016 High-risk 11/20/2013 10/28/2014 Overview: ICD10 Diagnosis Term Metallurgist Process Utility Generalized anxiety disorder 11/20/2013 03/27/2016 Tobacco use disorder 11/20/2013 03/27/2016 Prior complicated by PIH, antepartum 11/20/2013 10/28/2014 Overview: 1st Hx of one miscarriage 11/20/2013 10/28/2014 Overview: At 15wks in 2007. Followed by 3 successful deliveries Pediculus capitis (head louse) 05/09/2008 4 Supervision of other normal 05/09/2008 Urinary tract infection, site not specified 05/09/2008 11/20/2013 Cannabis dependence 05/09/2008 11/20/2013 Overview: ICD10 Diagnosis Term Metallurgist Process Utility Nausea without vomiting 05/09/2008 11/20/2013 Overview: ICD10 Diagnosis Term Metallurgist Process Utility Other screening 05/09/2008 11/20/2013 Other specified drug dependence, unspecified 05/09/2008 11/20/2013 Less than 24 completed weeks of gestation 05/09/2008 11/20/2013 31-32 completed weeks of gestation(765.26) 05/09/2008 11/20/2013 Proteinuria 05/09/2008 11/20/2013 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 11/20/2013 Overview: ICD10 Diagnosis Term Metallurgist Process Utility Tobacco use disorder complicating , childbirth, or 04/30/2008 11/20/2013 puerperium, antepartum Overview: ICD10 Diagnosis Term Metallurgist Process Utility Other anxiety states 04/30/2008 11/20/2013 Carrier or suspected carrier of group B Streptococcus 200711/20/2013 Elevated blood pressure reading without diagnosis of 008 11/20/2013 hypertension Overview: Labile blood pressure without s/s of PIH documented as of this encounter (statuses as of 12/31/2019) Immunizations Name Administration Dates Next Due Rubella 05/26/2010 Td 11/20/2000 Tdap 08/15/2016, 04/13/2014 documented as of this encounter Social History Tobacco Use Types Packs/Day Years Used Date Current Every Day Smoker Cigarettes 0.25 4 Sta rted: 12/16/2008 Smokeless Tobacco: Never Used Alcohol Use Drinks/Week oz/Week Comments No 0 Standard drinks or equivalent 0.0 Estimated Date of Delivery Comments Yes 01/16/2020 Based on last menstr ual period of 04/11/2019 (Exact Date) Sex Assigned [...] Td Vaccines (4 - Td) 08/15/2026 08/15/2016, 0 04/13/2014, 11/20/2000 documented as of this encounter Goals Goal Patient Goal Associated Recent Patient-Stated? 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 Medic aid HEALTH CHOICE - HEALTH CHOICE ent [id number] 1 MANAGED MEDICAID [place], [place] [phone] documented as of this encounter Advance Directives Name Relationship Healthcare Agent Communication Relationship Kannan Seals Father Primary healthcare agent
[2020-01-11] MEDS ORDERED: LIDOCAINE 1% MPF 30 ML VIAL SQ ONE (04:14)
[2020-01-11 04:56] VITALS: BMI 29.6
[2020-01-11] MEDS ORDERED: OXYTOCIN/LR 20 UNIT/1,000 ML BAG IV SCH ×2 (05:00→16:00)
[2020-01-11] MEDS ORDERED: Ringers Lactate 1,000 ML IV SCH (05:00)
[2020-01-11 05:02] LABS: Absolute Lymphocytes (CBC) 3.3 K/uL (0.7-4.9); Basophils % 0.2 % (0-1.3); Hematocrit 33.6 % (36.0-45.0); Lymphocytes % 23.7 % (15.3-44.8); RBC Red Blood Cell Count 4.24 M/uL (3.86-4.86)
[2020-01-11 05:03] LABS: Urine Appearance CLOUDY; Urine Bilirubin NEGATIVE (NEG); Urine Blood NEGATIVE (NEG); Urine Color YELLOW; Urine Glucose NEGATIVE (NEG); Urine Protein NEGATIVE (NEG); Urine Specific Gravity 1.025 (1.005-1.030); Urine Urobilinogen 0.2 mg/dL (0.2-1.0); Urine pH 7.5 (5.0-7.0)
[2020-01-11 05:10] LABS: Urine Microscopic Reflex ORDER UMIC
[2020-01-11 05:46] LABS: Calcium Oxalate Crystals- Ur MODERATE (NONE SEEN); Urine Bacteria <20 /HPF (<20); Urine Culture Reflex Order REFLEXED; Urine RBC <5 /HPF (NONE SEEN)
[2020-01-11] MEDS ORDERED: ROPIVACAINE HCL 2 MG/ML 100ML IV ONE (06:58)
[2020-01-11] MEDS ORDERED: ROPIVACAINE HCL 100 ML IV ONE (06:58)
[2020-01-11] MEDS ORDERED: FENTANYL CITR 100 MCG/2 ML IV ONE (06:58)
--- NOTE | 2020-01-11 07:37 | PREOPHP ---
Date of Admission: 01/11/2020 A 34-year-old 7 para 5, AB 1; possibly 39 weeks and 6 days. FHTs normal, reactive. Vital si gns are stable. She is 3 cm, 60% effaced, but the baby is still -2, possibly -3 station. Vertex con tracting regularly. She knows if membranes rupture spontaneously. She is to tell the nurse so we ca n check her immediately. Otherwise we will wait about an hour and check again and see if the baby is well applied and after rupture of membranes, the patient will be requesting epidural. Full admissio n and labor talk given. She is Rh positive, immune to Rubella. Negative strep screen. C/MODL Voice ID: [id number]
[2020-01-11] MEDS ORDERED: ROPIVACAINE HCL 0.2% 20ML AMP IV ONE (08:00)
--- NOTE | 2020-01-11 08:46 | PN ---
Patient is blair regularly. She is resting comfortably, requiring no analgesics. We will wait another hour or so before we check and see if any progress has occurred. SLY/VINOD Voice ID: [id number] Report ID: [id number]
--- NOTE | 2020-01-11 12:28 | PN ---
Baby has come down to -1 station now, 3.5 cm, 60% may be 70% effaced. Rupture of membranes, clear fl uid. Patient is blair every 1-1/2 minutes. Anticipate more rapid progress. Dr. Pitts is doing an epidural next door, since he finishes there he will come and do December's epidural at her request. SLY/VINOD Voice ID: [id number] Report ID: [id number]
[2020-01-11] MEDS ORDERED: LIDOCAINE 1% MPF 30 ML VIAL ONE (14:49)
[2020-01-11] MEDS ORDERED: METHYLERGONOVINE 0.2MG/ML AMP IM ONE (14:49)
[2020-01-11] MEDS ORDERED: CARBOPROST TROME 250 MCG/ML IM ONE (14:49)
[2020-01-11] MEDS ORDERED: DOCUSATE NA/SENNA CONC 1 TAB PO PRN (15:05)
[2020-01-11] MEDS ORDERED: ACETAMINOPHEN 500 MG TAB PO PRN (15:05)
[2020-01-11] MEDS ORDERED: Oxycodone HCl/Acetaminophen 1 TAB TAB PO PRN (15:05)
[2020-01-11] MEDS ORDERED: BISACODYL 10 MG RECTAL SUPP PR PRN (15:05)
[2020-01-11] MEDS ORDERED: DIPHENHYDRAMINE 25 MG TAB/CAP PO PRN (15:05)
[2020-01-11] MEDS ORDERED: IBUPROFEN 600 MG TAB PO PRN (15:05)
[2020-01-11] MEDS ORDERED: OXYTOCIN/LR 20 UNIT/1,000 ML BAG IV ONE (15:42)
[2020-01-11] MEDS ORDERED: Ringers Lactate 1,000 ML IV ONE (18:04)
[2020-01-11] MEDS: Oxycodone HCl/Acetaminophen 1 TAB TAB PO PRN (21:08)
--- NOTE | 2020-01-11 23:06 | OP ---
Surgeon: Moody Sanchez MD History: This 34-year-old 7, para 5, AB1, 39 weeks, 2-1/2 to 3 cm on admission. The patient had epidural anesthesia established at approximately 3.5 cm, 70% had rupture of membranes, clear flu id. Thereafter, went to complete fairly rapidly second stage of 5-10 minutes, spontaneous vaginal de livery of an estimated 8 pounds female, Apgars 9 and 9. No episiotomy. No laceration. Genee roger avila of the placenta, which was inspected and noted to be intact and normal, less than 200 mL blood loss. Rh positive, immune to Rubella. Negative beta strep screen. The patient has had severe hemor rhoids during her and even prolapsed rectal type tissue, this is reinserted and we will put an ice pack on it as soon as possible to improve sphincter tone and hopefully this will not prolapse again. It has basically been asymptomatic for the patient. Final Diagnosis: Intrauterine gestation, 39 weeks. Vaginal delivery. Epidural anesthesia. SLY/VINOD Voice ID: [id number] Report ID: [id number]
[2020-01-11 23:15] LABS: RPR (Rapid Plasma Reagin) NON-REACT (NON-REACT)
[2020-01-12] MEDS: Oxycodone HCl/Acetaminophen 1 TAB TAB PO PRN ×3 (04:00→16:13)
[2020-01-12] MEDS ORDERED: Tdap (Diph,Pertuss(Acell),Tet Vac) 0.5 ML SYR IMVAC ONE (08:20)
--- NOTE | 2020-01-12 09:32 | DS ---
34-year-old 7, para 5, AB 1, 39 weeks gestation, delivered a female in the 8-pound ran ge. Apgars 9 and 9. Epidural anesthesia. No episiotomy. No laceration. Schultze delivery of the placenta, inspected, and noted to be intact and normal. Less than 200 mL blood loss. Patient is not ed to have significant hemorrhoids during her and partial rectal prolapse. This was reduce d at the time of delivery and has remained without prolapse since then. She will be dismissed later this afternoon to report back to my office in 6 weeks for followup, to report any temperature elevati on of 100 degrees or greater, severe pain, heavy bleeding, or any other type of abnormalities. At he r request, tramadol is to be taken on an as needed basis. She knows she is going to need this for th e next couple of days. Tdap suggested strongly during her and patient says she will get it before she is dismissed. Final Diagnoses: Term intrauterine 39 weeks. Multiparity. Vaginal delivery. Epidural an esthesia. SLY/VINOD Voice ID: [id number] Report ID: [id number]
[2020-01-12 12:05] VITALS: BP 113/72; TEMP 97.4
[2020-01-13 12:36] LABS: HBsAG Nonreactive (Nonreactive)
== END 2020-01-12 17:35 | disposition home or self-care (01) | DRG 807 ==
LOC: 2ND-WC 04:06
PROVIDERS: ADMIT Specialist; ATTEND Specialist
PROC: 10E0XZZ Delivery of Products of Conception, External Approach (ICD-10-PCS; principal; 2020-01-11)
PROC: 10907ZC Drainage of Amniotic Fluid, Therapeutic from Products of Conception, Via Natural or Artificial Opening (ICD-10-PCS; 2020-01-11)
DX: O80 Encounter for full-term uncomplicated delivery (principal); Z37.0 Single live birth; Z3A.39 39 weeks gestation of pregnancy
CPT/HCPCS: 36415; 81003; 81015; 85025; 86592; 86850; 86900; 86901; 87086; 87088; 87340; 90471; 90715; J2210; J2590; J2795; J3010; J7120

== ENCOUNTER 2021-11-06 11:22 | Emergency (ER) | payer OTHER ==
--- OUTSIDE RECORDS SUMMARY | 2021-11-06 11:25 | XMS REPORT | Continuity of Care Document ---
:1985 Author Organization [facility] t Address [address] [place] [address] Dr. Wang. [address] [place] [address] Care Team Providers Name Role Phone Igor Stubbs DO Attending Clinician Doctor Unassigned, Name Attending Clinician Unavailable Sanjiv Stephens Attending Clinician Payers Payer Name Policy Type Policy Number Effective Date Expiration Date S ource Advance Directives Directive Decision Effective Termination Comments Source Date Date Healthcare Agents on N/A Univ ersity FileNameRelationshipHealthcare [facility] Agent Medical RelationshipCommunicationCharbridgeport hospital Branch [facility] Care [phone] (Mobile) Problems Condition Condition Condition Status Onset Resolution Last Treating Co mments Source Name Details Category Date Date Treatment Clinician Date History of History of Disease Active Overview : Univers placenta placenta 05-29 In 2009 it[place] o f [place] per [place] patient Branch Supervisio Supervisio Disease Active U nivers n of n of 05-29 [place] of high[place]risk [place] [facility] [place] Tobacco Tobacco Disease Active Univers use in use [place] 05-29 [place] History of History of Disease Active Overview : Univers 05-29 In 2007 ity of induced induced 00:00: [place] hypertensi hypertensi 00 Me dical on on Branch History of History of Disease Active Overview : Univers placenta placenta - In 2009 ity o f abruption abruption [place] 00 per Medical patient Branch Multiparit Multiparit Disease Active U nivers y y 05-29 ity of 00:00: [place] 00 Medical Branch History of History of Disease Active Overview : Univers placenta placenta - In 2009 ity o f abruption abruption 00:[place] 00 per Medical patient Branch History of History of Disease Active U nivers abnormal abnormal 3-26 ity of cervical cervical 00:00: [place] Pap smear Pap smear [address] [facility] Branch Encounter Encounter Disease Active 2016-09 Uni vers for for 2-21 [place]y of contracept [place]pt [place] ed[place] eder 00 Medical management management Br anch , , unspecifie unspecifie d type d type Cervical Cervical Disease Active Overview: Un [place] high risk high risk 6-23 HGSIL and i ty of human human 00:00: HPV+ on [place] papillomav papillomav 00 02/2017 [facility] irus (HPV) irus (HPV) Pap Smear [place] DNA test DNA test positive positive Papanicola Papanicola Disease Active Overview : Univers ou smear ou smear 03-14 HGSIL ity of of cervix of cervix 00:00: present [place] as with high with high [address] [facility] grade grade 03/11/2017 Branch squamous squamous pap intraepith intraepith smear, elial elial patient lesion lesion needs (HGSIL) (HGSIL) LEEP Screen for Screen for Disease Active U [place] STD STD - it[place] of (sexually ([place] transmitte transmitte 00 Me dical d disease) d disease) Br anch Obesity in Obesity in Disease Active U nivers - ity of 00:00: [place] 00 Medical Branch Allergies, Adverse Reactions, Alerts This patient has no known allergies or adverse reactions. Social History Social Habit Start Date Stop Date Quantity Comments Source ASSERTION 2019-04-25 University of 00:00:00 [facility] History of tobacco 2008-12-16 Cigarette Smoker University of use 00:00:00 [facility] Tobacco use and 2020-04-09 2020-04-09 Never used Universit y of exposure 00:00:00 00:00:00 [facility] Cigarettes smoked 2020-04-09 2020-04-09 Univers ity of current (pack per 00:00:00 00:00:00 ) - Reported Branch Cigarette 2020-04-09 2020-04-09 University of pack-years 00:00:00 00:00:00 [facility] Alcohol intake 2020-04-09 2020-04-09 Current University of 00:00:00 00:00:00 non-drinker of [facility] alcohol [place] (finding) Sex Ass[birth year] At [birth year] Universit y of 00:00:00 00:00:00 [facility] Smoking Status Start Date Stop Date Source Current every day smoker 2020-04-09 00:00:00 Uni versity of [facility] Medications Ordered Filled Start Stop Current Ordering Indication Dosage Frequency Signature Comments Components Source Medication Medication Date Date Medication? Clinician (SIG) Name Name norgestimat 2016-09 Yes [id number] 1{tbl} Take 1 Univers e-ethinyl 2-20 tablet by ity o f estradiol 00:00: mouth [place] (ORTHO 00 daily. [facility] 0.18/0.215/ 0.25 mg-35 mcg (28) tablet norgestimat 2016-09 Yes [id number] 1{tbl} Take 1 Univers e-ethinyl 2-20 tablet by ity o f estradiol 00:00: mouth [place] (ORTHO 00 daily. [facility],) 0.18/0.215/ 0.25 mg-35 mcg (28) tablet norgestimat 2016-09 Yes [id number] 1{tbl} Take 1 Univers e-ethinyl 2-20 tablet by ity o f estradiol 00:00: mouth [place] (ORTHO 00 daily. [facility],) 0.18/0.215/ 0.25 mg-35 mcg (28) tablet norgestimat 2016- Yes [id number] 1{tbl} Take 1 Univers e-ethinyl 2-20 tablet by ity o f estradiol 00:00: mouth [place] (ORTHO 00 daily. [facility],) 0.18/0.215/ 0.25 mg-35 mcg (28) tablet norgestimat 2016- Yes [id number] 1{tbl} Take 1 Univers e-ethinyl 2-20 tablet by ity o f estradiol 00:00: mouth [place] (ORTHO 00 daily. [place] [address],) 0.18/0.215/ 0.25 mg-35 mcg (28) tablet norgestimat 2016- Yes [id number] 1{tbl} Take 1 Univers e-ethinyl 2-20 tablet by ity o f estradiol 00:00: mouth [place] (ORTHO 00 daily. [place] [address],) 0.18/0.215/ 0.25 mg-35 mcg (28) tablet norgestimat 2017- Yes [id number] 1{tbl} Take 1 Univers e-ethinyl 2-20 tablet by ity o f estradiol 00:00: mouth [place] (ORTHO 00 daily. [place] [address],) 0.18/0.215/ 0.25 mg-35 mcg (28) tablet norgestimat 2016- Yes [id number] 1{tbl} Take 1 Univers e-ethinyl 2-20 tablet by ity o f estradiol 00:00: mouth [place] (ORTHO 00 daily. [place] [address],) 0.18/0.215/ 0.25 mg-35 mcg (28) tablet norgestimat 2016- Yes [id number] 1{tbl} Take 1 Univers e-ethinyl 2-20 tablet by ity o f estradiol 00:00: mouth [place] (ORTHO 00 daily. [place] [address],) 0.18/0.215/ 0.25 mg-35 mcg (28) tablet norgestimat 2016- Yes [id number] 1{tbl} Take 1 Univers e-ethinyl 2-20 tablet by ity o f estradiol 00:00: mouth [place] (ORTHO 00 daily. [place] [address],) 0.18/0.215/ 0.25 mg-35 mcg (28) tablet Immunizations Ordered Filled Immunization Date Status Comments [facility] e Immunization Name Name Tdap 2016-08-15 Completed [facility] 00:00:00 [facility] TDAP 2016-08-15 Completed [facility] 00:00:00 [facility] Tdap 2016-08-15 Completed University of 00:00:00 [place] [facility] Tdap 2016-08-15 Completed University of 00:00:00 [place] [facility] Tdap 2016-08-15 Completed University of 00:00:00 [place] [facility] Tdap 2016-08-15 Completed University of 00:00:00 [place] [facility] Tdap 2016-08-15 Completed University of 00:00:00 [place] [facility] Tdap 2016-08-15 Completed University of 00:00:00 [place] [facility] Tdap 2016-08-15 Completed University of 00:00:00 [place] [facility] Tdap 2016-08-15 Completed University of 00:00:00 [place] [facility] Tdap 2014-04-13 Completed University of 00:00:00 [place] [facility] TDAP 2014-04-13 Completed University of 00:00:00 [place] [facility] Tdap 2014-04-13 Completed University of 00:00:00 [place] [facility] Tdap 2014-04-13 Completed University of 00:00:00 [place] [facility] Tdap 2014-04-13 Completed University of 00:00:00 [place] [facility] Tdap 2014-04-13 Completed University of 00:00:00 [place] [facility] Tdap 2014-04-13 Completed University of 00:00:00 [place] [facility] Tdap 2014-04-13 Completed University of 00:00:00 [place] [facility] Tdap 2014-04-13 Completed University of 00:00:00 [place] [facility] Tdap 2014-04-13 Completed University of 00:00:00 [facility] Branch Rubella 2010-05-26 Completed University of 00:00:00 [facility] Branch Rubella 2010-05-26 Completed University of 00:00:00 [facility] Branch Rubella 2010-05-26 Completed University of 00:00:00 [facility] Branch Rubella 2010-05-26 Completed University of 00:00:00 [place] [facility] Rubella 2010-05-26 Completed University of 00:00:00 [place] [facility] Rubella 2010-05-26 Completed University of 00:00:00 [place] [facility] Rubella 2010-05-26 Completed University of 00:00:00 [facility] Branch Rubella 2010-05-26 Completed University of 00:00:00 [facility] Branch Rubella 2010-05-26 Completed University of 00:00:00 [facility] Branch Rubella 2010-05-26 Completed University of 00:00:00 [place] [facility] Td 2000-11-20 Completed University of 00:00:00 [place] [facility] Td 2000-11-20 Completed University of 00:00:00 [place] [facility] Td 2000-11-20 Completed University of 00:00:00 [place] [facility] Td 2000-11-20 Completed University of 00:00:00 [place] [facility] Td 2000-11-20 Completed University of 00:00:00 [place] [facility] Td 2000-11-20 Completed University of 00:00:00 [place] [facility] Td 2000-11-20 Completed University of 00:00:00 [place] [facility] Td 2000-11-20 Completed University of 00:00:00 [place] [facility] Td 2000-11-20 Completed University of 00:00:00 [place] [facility] Td 2000-11-20 Completed University of 00:00:00 [facility] Vital Signs Vital Name Observation Time Observation Value Comments Source Systolic blood 2019-05-29 15:39:00 103 [facility] Diastolic blood 2019-05-29 15:39:00 72 mm[Hg] [facility] Heart rate 2019-05-29 15:39:00 71 /min [facility] Body temperature 2019-05-29 15:39:00 36.67 Dolores [facility] Respiratory rate 2019-05-29 15:39:00 16 /min [facility] Body height 2019-05-29 15:39:00 165.1 cm [facility] Body weight 2019-05-29 15:39:00 82.3 kg [facility] BMI 2019-05-29 15:39:00 30.19 kg/m2 [facility] Procedures Procedure Date / Time Performing Clinician Source Performed AUTHORIZATION FOR RELEASE 2019-11-25 06:01:00 Doctor Unassigned, [facility] [place] AUTHORIZATION FOR RELEASE 2019-09-29 06:01:00 Doctor Unassigned, [facility] [place] POCT URINALYSIS W/O 2019-05-29 15:42:00 Jacquelyn Saunders Uni versity [facility] SPECIFIC GRAVITY [facility] POCT TEST 2019-05-29 15:40:00 Jacquelyn Saunders Uni [facility] NO SHOW OR MISSED 2019-05-29 14:38:22 Doctor Unassigned, Univers ity of [place] APPOINTMENT POLICY [facility] h ACKNOWLEDGEMENT Encounters Start End Encounter Admission Attending Care Care Encounter Source Date/Time Date/Time Type Type Clinicians Facility Department ID 2020-12-13 2020-12-13 Patient Enoc [facility] [id number] Univers 00:00:00 00:00:00 Outreach Ke PRIMARY [id number] i ty of [facility] [id number] [place] ESTHER[place]IA [id number] [place] dical [address] [place] 2019-11-25 2019-11-25 Orders Doctor MEJIA [id number] 00:00:00 00:00:00 Only Unassigned, GUILLERMO [id number] [facility] [id number] [facility] 2019-11-25 2019-11-25 Orders Doctor MEJIA [id number] Univers 00:00:00 00:00:00 Only Unassigned, GUILLERMO [id number] ity of [facility] [id number] [place] [phone] [address] 2019-09-29 2019-09-29 Orders Doctor MEJIA [id number] 00:00:00 00:00:00 Only Unassigned, GUILLERMO [id number] [facility] [id number] [facility] 2019-09-29 2019-09-29 Orders Doctor MEJIA [id number] Univers 00:00:00 00:00:00 Only Unassigned, GUILLERMO [id number] ity of [facility] [id number] [place] as [id number] [address] 2019-06-01 2019-06-01 Telephone Nicky [facility] [id number] 00:00:00 00:00:00 Jacquelyn Kincaid DIRECTOR TALENT [id number] REGIONAL [id number] MATERNAL [id number] & CHILD [address] [place] [address] 2019-06-01 2019-06-01 Patient Doctor [facility] [id number] Univers 00:00:00 00:00:00 Secure Msg Unassigned, DIRECTOR TALENT [id number] ity of [place] [facility] [id number] [place] as MATERNAL [id number] [facility] & CHILD [address] [place] [address] 2019-06-01 2019-06-01 Telephone [facility] [id number] Univers 00:00:00 00:00:00 Jacquelyn C DIRECTOR TALENT [id number] ity of [facility] [id number] [place] MATERNAL [phone] [facility] & CHILD [address] [place] [address] 2019-05-29 2019-05-29 Initial [facility] [id number] Univers 10:16:25 11:21:46 Jacquelyn C DIRECTOR TALENT [id number] ity of Visit [facility] [id number] [place] as MATERNAL [id number] [facility] & CHILD [address] [place] [address] 2019-05-29 2019-05-29 Orders Doctor JACKIE [id number] Univers 00:00:00 00:00:00 Only Unassigned, GUILLERMO [id number] ity of [place] [facility] [id number] [place] [phone] [address] Results Test Description Test Time Test Comments Results Result Comments Source POCT URINALYSIS W/O SPECIFIC GRAVITY 2019-05-29 15:42:00 Test Item Value Reference Range Interpretation Comme nts POCT PH U (test code = 3254) 6 mg/dl 5-8 POCT U LEUK EST (test code = 3263) Neg Negative - Negative POCT U NIT (test code = 3262) Neg Negative - Negative POCT U PROT (test code = 3259) Trace Negative - Negative POCT U GLU (test code = 3256) Neg Negative - Negative POCT U KETONE (test code = 3258) None Negative - Negative POCT U BLD (test code = 3257) Trace Negative - Negative [facility] [place] [facility] [id number] 15:40:00 Test Item Value Reference Range Interpretation Comments POCT PREG (test code = 1605) Positive On board controls acceptable with C Yes Line (test code = 3574) POCT PREG LOT # (test code = 3575) POCT PREG TEST DATE (test code = 3576) [facility] [place]
--- NOTE | 2021-11-06 13:54 | ER ---
Nurse's Notes [facility] [place] Name: Nata Seals Age: 36 yrs Sex: Female : 1985 Arrival Date: 11/06/2021 Time: 11:26 Bed Waiting Private MD: Diagnosis: SARS-associated coronavirus as the cause of diseases classified elsewhere Presentation: 11/06 11:47 Chief complaint: Patient states: Fever , cough/congestion for 2 days. Fever 101.3 at 1 home. Coronavirus screen: Vaccine status: Patient reports being unvaccinated. Client denies travel out of the [place] in the last 14 days. congestion, cough unrelated to allergies, fatigue, fever, headache, Client presents with at least one sign or symptom that may indicate coronavirus-19. Standard/surgical mask placed on the client. Ebola Screen: Patient denies travel to an Ebola-affected area in the 21 days before illness onset. Initial Sepsis Screen: Does the patient meet any 2 criteria? HR > 90 bpm. No. Patient's initial sepsis screen is negative. Does the patient have a suspected source of infection? Yes: Productive cough/pneumonia. Risk Assessment: Do you want to hurt yourself or someone else? Patient reports no desire to harm self or others. Onset of symptoms was November 05, 2021. 11:47 Method Of Arrival: Ambulatory ll1 11:47 Acuity: TIGIST 4 ll1 Historical: - Allergies: 11:48 No Known Allergies; ll1 - PMHx: 11:48 None; ll1 - PSHx: 11:48 None; ll1 - Immunization history:: Client reports having NOT received the Covid vaccine. Flu vaccine status is unknown. - Social history:: Smoking status: Patient reports the use of cigarette tobacco products, smokes one-half pack cigarettes per day. Vital Signs: 11:47 BP 169 / 79; Pulse 95; Resp 17; Temp 99.4; Pulse Ox 100% ; Weight 88.9 kg; Height 5 ft. ll1 5 in. (165.10 cm); Pain 6/10; 11:47 Body Mass Index 32.61 (88.90 kg, 165.10 cm) ll1 ED Course: 11:26 Patient arrived in ED. am2 11:48 Triage completed. ll1 11:48 Arm band placed on. ll1 12:15 Rajesh Duong PA is PHCP. jr8 12:15 Roberto Lomax MD is Attending Physician. jr8 Administered Medications: No medications were administered Outcome: 13:54 Discharge ordered by . jr8 14:05 Patient left the ED. ll1 Signatures: Rajesh Duong PA PA jr8 Poppy Jean-Baptiste am2 Kan Cruz RN RN ll1 Corrections: (The following items were deleted from the chart) 11:57 11:47 BP 196 / 79; Pulse 95bpm; Resp 17bpm; Pulse Ox 100%; Temp 99.4F; 88.9 kg; Height ll1 5 ft. 5 in.; BMI: 32.6; Pain 6/10; ll1
--- NOTE | 2021-11-06 13:55 | EDPHYS ---
Physician Documentation [facility] Name: Nata Arnel Age: 36 yrs Sex: Female : 1985 Arrival Date: 11/06/2021 Time: 11:26 Bed Waiting Private MD: ED Physician Roberto Lomax HPI: 11/06 13:07 This 36 yrs old Female presents to ER via Ambulatory with complaints of Fever, Doesn't jr8 Feel Right. 13:07 The patient reports fever, not measured (subjective). Onset: The symptoms/episode jr8 began/occurred suddenly. Modifying factors: The patient has had contact with sick daughter. Associated signs and symptoms: Pertinent positives: cough, runny nose. Severity of symptoms: At their worst the symptoms were mild. The patient has not experienced similar symptoms in the past. The patient has not recently seen a physician. Historical: - Allergies: 11:48 No Known Allergies; ll1 - PMHx: 11:48 None; ll1 - PSHx: 11:48 None; ll1 - Immunization history:: Client reports having NOT received the Covid vaccine. Flu vaccine status is unknown. - Social history:: Smoking status: Patient reports the use of cigarette tobacco products, smokes one-half pack cigarettes per day. ROS: 13:07 Back: Negative for injury and pain, MS/Extremity: Negative for injury and deformity, jr8 Skin: Negative for injury, rash, and discoloration, Neuro: Negative for headache, weakness, numbness, tingling, and seizure. 13:07 Constitutional: Positive for body aches, chills, fever. 13:07 ENT: Positive for rhinorrhea, sinus congestion. 13:07 Respiratory: Positive for cough, Negative for shortness of breath, sputum production, wheezing. Exam: 13:07 Constitutional: This is a well developed, well nourished patient who is awake, alert, jr8 and in no acute distress. Eyes: Pupils equal round and reactive to light, extra-ocular motions intact. Lids and lashes normal. Conjunctiva and sclera are non-icteric and not injected. Cornea within normal limits. Periorbital areas with no swelling, redness, or edema. ENT: Nares patent. No nasal discharge, no septal abnormalities noted. Tympanic membranes are normal and external auditory canals are clear. Oropharynx with no redness, swelling, or masses, exudates, or evidence of obstruction, uvula midline. Mucous membranes moist. Neck: Trachea midline, no thyromegaly or masses palpated, and no cervical lymphadenopathy. Supple, full range of motion without nuchal rigidity, or vertebral point tenderness. No Meningismus. Cardiovascular: Regular rate and rhythm with a normal S1 and S2. No gallops, murmurs, or rubs. Normal PMI, no JVD. No pulse deficits. Respiratory: Lungs have equal breath sounds bilaterally, clear to auscultation and percussion. No rales, rhonchi or wheezes noted. No increased work of breathing, no retractions or nasal flaring. Abdomen/GI: Soft, non-tender, with normal bowel sounds. No distension or tympany. No guarding or rebound. No evidence of tenderness throughout. Back: No spinal tenderness. No costovertebral tenderness. Full range of motion. Skin: Warm, dry with normal turgor. Normal color with no rashes, no lesions, and no evidence of cellulitis. MS/ Extremity: Pulses equal, no cyanosis. Neurovascular intact. Full, normal range of motion. Neuro: Awake and alert, GCS 15, oriented to person, place, time, and situation. Cranial nerves II-XII grossly intact. Motor strength 5/5 in all extremities. Sensory grossly intact. Cerebellar exam normal. Normal gait. Vital Signs: 11:47 BP 169 / 79; Pulse 95; Resp 17; Temp 99.4; Pulse Ox 100% ; Weight 88.9 kg; Height 5 ft. ll1 5 in. (165.10 cm); Pain 6/10; 11:47 Body Mass Index 32.61 (88.90 kg, 165.10 cm) ll1 MDM: 12:19 Patient medically screened. [facility] 13:53 Data reviewed: vital signs, nurses notes, lab test result(s), and as a result, I will [facility] discharge patient. Data interpreted: Pulse oximetry: on room air is 100 %. Interpretation: normal. Counseling: I had a detailed discussion with the patient and/or guardian regarding: the historical points, exam findings, and any diagnostic results supporting the discharge/admit diagnosis, lab results, the need for outpatient follow up, a family practitioner, to return to the emergency department if symptoms worsen or persist or if there are any questions or concerns that arise at home. 11/06 12:49 Order name: SARS-COV-2 RT PCR; Complete Time: 13:53 EDMS Administered Medications: No medications were administered Disposition: 14:17 Co-signature as Attending Physician, Roberto Lomax MD I agree with the assessment and rn plan of care. Attestation: The patient's history, exam findings, diagnostics, and a summary of any interventions or procedures was reviewed in detail with Rajesh HARRELL. Disposition Summary: 11/06/21 13:54 Discharge Ordered Location: Home jr8 Problem: new jr8 Symptoms: have improved jr8 Condition: Stable jr8 Diagnosis - SARS-associated coronavirus as the cause of diseases classified elsewhere jr8 Followup: jr8 - With: Private Physician - When: 2 - 3 days - Reason: Recheck today's complaints, Continuance of care, Re-evaluation by your physician Discharge Instructions: - Discharge Summary Sheet jr8 - COVID-19 jr8 Forms: - Medication Reconciliation Form jr8 - Thank You Letter jr8 - Antibiotic Education jr8 - Prescription Opioid Use jr8 Prescriptions: - promethazine-DM 6.25-15 mg/5 mL Oral syrup - take 5 milliliter by ORAL route every 4-6 hours As needed as needed, not to jr8 exceed 30 mL in 24 hours; 110 milliliter; Refills: 0, Product Selection Permitted Signatures: Dispatcher [employer] EDMS Roberto Lomax MD MD rn Roszak, Josh, PA PA jr8 Kan Cruz RN RN ll1
[2021-11-06 14:47] VITALS: BP 169/79; TEMP 99.4; O2SAT 100
== END 2021-11-06 14:05 | disposition home or self-care (01) ==
LOC: ER 11:22
DX: U07.1 COVID-19 (principal)
CPT/HCPCS: 99281; U0003